=== PATIENT | male | born 1960 ===

== ENCOUNTER 2017-08-02 15:37 | Inpatient (IN) | payer BC, OTHER ==
--- NOTE | 2017-08-02 16:12 | ED PDOC ---
HPI:STROKE - Time Time: 15:20 - Historian Historian: Patient - Chief Complaint Chief Complaint: Slurred speech - Onset Onset: Just prior to presenting - Timing Timing: Improved - Context Context: Other ([employer]) - Location Location: Speech - Notes: Notes:: Nick Cates, 56 year old male is presenting in the emergency department for evaluation after one minute episode of slurred speech, occurring just prior to arrival. Episode was witnessed by and the plant maintenance mechanic. He states he was attempting to tell the plant maintenance mechanic he wanted an oil change but could not find the words. Patient states he felt fine prior to the episode and has never experienced a similar symptom in the past. Now he reports he still has difficulty finding words. Denies blurry vision, focal weakness, or difficulty with gait. PMD: Non CPH Provider NIHSS Stroke Scale - Date/Time Evaluation Performed Date Performed: 08/02/17 Time Performed: 15:20 When Was NIHSS Performed: Baseline - How Severe is the Stroke Level of Consciousness: 0=Alert LOC to Questions: 0=Both comments correct LOC to commands: 0=Obeys both correctly Best Gaze: 0=Normal Visual: 0=No visual loss Facial: 0=Normal Motor Arm - Left: 0=No drift Motor Arm - Right: 0=No drift Motor Leg - Left: 0=No drift Motor Leg - Right: 0=No drift Limb Ataxia: 0=Absent Sensory: 0=Normal Best Language: 0=No aphasia Dysarthia: 0=Normal articulation Extinction & Inattention (Neglect): 0=Normal, no object Score: 0 rTPA Inclusion/Exclusion - Refusal of Treatment Patient Refused Treatment: No - Inclusion Criteria for Altepase Patient is 18 years or Older: Yes The Clinical Diagnosis of Ischemic Stroke That is Causing a Potentially Disabling Neurological Deficit: Yes Time of Onset is Well Established to be Less Than 270 Minute Before Treatment Would Begin: Yes Risk/Benefit Discussed With Patient/Family Member Present: Yes - Exclusion Criteria for Altepase Uncontrolled Hypertension at Time of Treatment (Systolic BP above 185 or Diastolic BP above 110 mmHg): No - Warning to TPA With Conditions Condition: Stroke Serevity Too Mild Past Medical History Reviewed: Historical Data, Nursing Documentation, Vital Signs Vital Signs: Last Vital Signs Temp 97.9 F 08/02/17 15:43 Pulse 114 H 08/02/17 15:43 Resp 20 08/02/17 15:43 BP 151/97 H 08/02/17 15:43 Pulse Ox 94 L 08/02/17 15:43 - Medical History PMH: CAD, Diabetes, HTN, Hypercholesterolemia, Hyperlipidemia - Surgical History Surgical History: CABG (with 3 vessels), Coronary Stent - Family History Family History: States: Unknown Family Hx - Social History Current smoker - smoking cessation education provided: Yes Alcohol: None - Home Medications Home Medications: Ambulatory Orders Medication Instructions Recorded Aspirin [Ecotrin] 81 mg PO DAILY 08/02/17 Cholecalciferol (Vitamin D3) 1 tab PO DAILY 08/02/17 [D3-5000 90 mg-5000 Iu] Clopidogrel [Plavix] 75 mg PO DAILY 08/02/17 Empagliflozin/Linagliptin 1 tab PO DAILY 08/02/17 [Glyxambi 25 mg-5 mg] Fenofibrate [Triglide] 160 mg PO DAILY 08/02/17 Folic Acid 400 mg PO DAILY 08/02/17 MetFORMIN [glucoPHAGE] 1,000 mg PO BID 08/02/17 Metoprolol Succinate [Toprol XL] 100 mg PO BID 08/02/17 Olmesartan/Hydrochlorothiazide 12.5 mg PO DAILY 08/02/17 [Benicar Hct 12.5 mg-20 mg] Copeland-3 Fatty Acids/Fish Oil [Fish 1,000 mg PO DAILY 08/02/17 Oil 1,000 mg Capsule] - Allergies Allergies/Adverse Reactions: Allergies Allergy/AdvReac Type Severity Reaction Status Date / Time No Known Allergies Allergy Verified 08/02/17 15:53 Review of Systems ROS Statement: Except As Marked, All Systems Reviewed And Found Negative (As per HPI, otherwise negative) Eyes: Negative for: Vision Change (not blurry ) Neurological: Positive for: Change in Speech (slurred speech), Other (no difficulty with gait). Negative for: Weakness (no focal weakness), Numbness, Confusion Physical Exam - Reviewed Nursing Documentation Reviewed: Yes Vital Signs Reviewed: Yes - Physical Exam Appears: Positive for: Non-toxic, No Acute Distress Head Exam: Positive for: ATRAUMATIC, NORMOCEPHALIC Skin: Positive for: Warm, Dry Eye Exam: Positive for: EOMI, PERRL ENT: Positive for: Other (tacky mucus membranes). Negative for: Pharyngeal Erythema, Tonsillar Exudate Neck: Positive for: Painless ROM, Supple Cardiovascular/Chest: Positive for: Regular Rate, Rhythm, Chest Non Tender. Negative for: Murmur Respiratory: Positive for: Normal Breath Sounds. Negative for: Wheezing Gastrointestinal/Abdominal: Positive for: Soft. Negative for: Tenderness Back: Positive for: Normal Inspection. Negative for: Decreased ROM Extremity: Positive for: Normal ROM. Negative for: Deformity Lymphatic: Negative for: Adenopathy Neurologic/Psych: Positive for: Alert, Oriented (x3), Other (slurred speech). Negative for: Facial Droop - Laboratory Results Result Diagrams: 08/04/17 04:40 08/04/17 04:40 - ECG O2 Sat by Pulse Oximetry: 94 (RA) Pulse Ox Interpretation: Normal - Critical Care Total Time (In Min): 30 Documented Critical Care: Time excludes all time spent performint seperately billable procedures Medical Decision Making Medical Decision Making: Time: 15:54 Initial Impression: Speech Disturbance Transient Differential Diagnosis includes but is not limited to: TIA, CVA, Metabolic encephalopathy, Dehydration, Electrolyte Abnormalities, Arrhythmia, Acute Coronary Syndrome Initial Plan: --BBK Type and Screen --CT head --EKG --Alcohol Serum --BNP --CMP --Hemoglobin A1C --Lipid Panel --Magnesium --Phosphorous --Troponin --CBC --Partial Thromboplastin --Prothrombin Time --Chest XRAY --NS IV 100 mls/hr --Reevaluation ___ Accession No. : [id number] Patient Name / ID : ELLE VELAZQUEZ / [id number] Exam Date : 08/02/2017 15:58:24 ( Approved ) Study Comment : Sex / Age : M / 56Y Creator : Ridge Harry MD Dictator : Ridge Harry MD Adjunct Political Science Instructor : Director Of Clinical Education : Ridge Harry MD Approver2 : Report Date : 08/02/2017 16:11:45 My Comment : PROCEDURE: CT HEAD WITHOUT CONTRAST. HISTORY: code stroke COMPARISON: None available. TECHNIQUE: Axial computed tomography images were obtained through the head/brain without intravenous contrast. Radiation dose: Total exam DLP = 868 mGy-cm. This CT exam was performed using one or more of the following dose reduction techniques: Automated exposure control, adjustment of the mA and/or kV according to patient size, and/or use of iterative reconstruction technique. FINDINGS: HEMORRHAGE: No intracranial hemorrhage. BRAIN: No mass effect or edema. Questionable age-indeterminate hypodensity in the left marquita. No atrophy. Mild periventricular white matter chronic microvascular ischemic changes. VENTRICLES: Unremarkable. No hydrocephalus. CALVARIUM: Unremarkable. PARANASAL SINUSES: Unremarkable as visualized. No significant inflammatory changes. MASTOID AIR CELLS: Unremarkable as visualized. No inflammatory changes. OTHER FINDINGS: None. IMPRESSION: Questionable age-indeterminate hypodensity in the left marquita. Findings conveyed to Dr. Jerez by Dr. Mon at 4:10 p.m. on 08/02/2017. Time: 16:[address] Amaral, neurologist eviction specialist, who recommends full stroke work-up, including MRI, ECHO Cardiogram, Carotid Doppler, and Hospitalization 5p Pt started to have symptoms again. DW Dr Amaral. Agree with CT Angio and discussion about thrombolytics. DW pt and risks/benefits of thrombolytics. Pt's symptoms resolved again after about 3 minutes. Accession No. : [id number] Patient Name / ID : ELLE VELAZQUEZ / [id number] Exam Date : 08/02/2017 16:13:26 ( Approved ) Study Comment : Sex / Age : M / 56Y Creator : Ridge Harry MD Dictator : Ridge Harry MD Adjunct Political Science Instructor : Director Of Clinical Education : Ridge Harry MD Approver2 : Report Date : 08/02/2017 17:17:30 My Comment : HISTORY: code stroke COMPARISON: No prior. FINDINGS: LUNGS: No active pulmonary disease. PLEURA: No significant pleural effusion identified, no pneumothorax apparent. CARDIOVASCULAR: Prior sternotomy with sternal wires and surgical clips in place. Cardiomediastinal silhouette enlarged. OSSEOUS STRUCTURES: Degenerative changes. VISUALIZED UPPER ABDOMEN: Normal. OTHER FINDINGS: None. IMPRESSION: No active disease. Patient Name: NICK CATES (Age): 1960 56 Gender: M Date of Exam: 08/02/2017 Referring Physician: Kristy Jerez # of Images: 0 Ordered As: CTA HEAD NECK BUNDLE Page 1 of 2 EXAM: CT Angiography Neck With Intravenous Contrast EXAM DATE/TIME: 08/02/2017 5:08 PM CLINICAL HISTORY: 56 years old, male; Signs and symptoms; Other: Slurred speach; Additional info: Slurred speech TECHNIQUE: Axial computed tomographic angiography images of the neck with intravenous contrast using CT angiography protocol. All CT scans at this facility use one or more dose reduction techniques, viz.: automated exposure control; ma/kV adjustment per patient size (including targeted exams where dose is matched to indication; i.e. head); or iterative reconstruction technique. Reformatted 2-D isotropic reconstructions were created. CONTRAST: 100 mL of visipaque administered intravenously. COMPARISON: No relevant prior studies available. FINDINGS: VASCULATURE: Right common carotid artery: Unremarkable. No significant stenosis. No dissection or occlusion. Right internal carotid artery: There is mildly flow-limiting plaque at the right carotid bulb. The artery is narrowed by 20-30%. The remaining right internal carotid artery is tortuous but otherwise patent. Right external carotid artery: Unremarkable. No occlusion. Right vertebral artery: Unremarkable. No significant stenosis. No dissection or occlusion. Left common carotid artery: Unremarkable. No significant stenosis. No dissection or occlusion. Left internal carotid artery: There is mildly flow-limiting plaque at the left carotid bulb. The artery is narrowed by 20-30%. The remaining left internal carotid artery is tortuous but otherwise patent. Left external carotid artery: Unremarkable. No occlusion. Left vertebral artery: Unremarkable. No significant stenosis. No dissection or occlusion. NECK: Bones/joints: No acute fracture. No dislocation. Soft tissues: Unremarkable as visualized. No mass. CAROTID STENOSIS REFERENCE USING NASCET CRITERIA: % ICA stenosis = (1 - narrowest ICA diameter/diameter of distal cervical ICA) x 100. Mild - <50% stenosis. Moderate - 50-69% stenosis. Severe - 70-94% stenosis. Near occlusion - 95-99% stenosis. Occluded - 100% stenosis. IMPRESSION: 1. Mildly flow-limiting plaque at both carotid bulbs with each artery narrowing by 20-30%. 2. No other flow limiting stenosis or occlusion. Thank you for allowing us to participate in the care of your patient. Dictated and Authenticated by: Ravindra Hutchison MD 08/02/2017 6:51 PM Eastern Time ([place] & [place]) DW Dr Amaral findings. Advises one bolus dose of heparin and discussion with [facility] if patient would have possible intervention. FARAZ Valenzuela of [facility], who will review CT and advise to Dr Amaral. Scribe Attestation: Documented by Sahil Pittman, acting as a scribe for Kristy Jerez MD Provider Scribe Attestation: All medical record entries made by the Scribe were at my direction and personally dictated by me. I have reviewed the chart and agree that the record accurately reflects my personal performance of the history, physical exam, medical decision making, and the department course for this patient. I have also personally directed, reviewed, and agree with the discharge instructions and disposition. Disposition - Clinical Impression Clinical Impression: Dysarthria, TIA (transient ischemic attack) - Patient ED Disposition Is Patient to be Admitted: Yes Discussed With : Paige Amaral - Disposition Disposition Time: 16:45 Condition: CRITICAL - Pt Status Changed To: Hospital Disposition Of: Inpatient - Admit Certification Admit to Inpatient:: After my assessment, the patient will require hospitalization for at least two midnights. This is because of the severity of symptoms shown, intensity of services needed, and/or the medical risk in this patient being treated as an outpatient. - POA Core Measure Indicators: Code Stroke
[2017-08-02 16:23] LABS: BASO # 0.1 K/uL (0.0-0.2); BASO % 0.4 % (0.0-2.0); EOS # 0.2 K/uL (0.0-0.7); EOS % 1.6 % (0.0-4.0); HEMOGLOBIN 15.9 g/dL (12.0-18.0); LYMPH # 2.5 K/uL (1.0-4.3); LYMPH % 21.4 % (20.0-40.0); MEAN CELL VOLUME 90.2 fl (80.0-94.0); MEAN CORPUSCULAR HEMOGLOBIN 30.5 pg (27.0-31.0); MEAN CORPUSCULAR HGB CONC 33.8 g/dL (33.0-37.0); MEAN PLATELET VOLUME 8.7 fl (7.2-11.7); MONO # 1.2 K/uL (0.0-0.8); MONO % 10.3 % (0.0-10.0); NEUT # 7.6 K/uL (1.8-7.0); NEUT % 66.3 % (50.0-75.0); NRBC % 0.1 % (0.0-0.0); RBC 5.21 Mil/uL (4.40-5.90); WHITE BLOOD COUNT 11.5 K/uL (4.8-10.8)
[2017-08-02] MEDS ORDERED: Sodium Chloride 0.9% 1,000 ML IV STA ×2 (16:28→19:12)
[2017-08-02 16:44] LABS: INR 0.9 (0.9-1.2); PROTHROMBIN TIME 10.2 Seconds (9.8-13.1)
[2017-08-02 16:45] LABS: PARTIAL THROMBOPLASTIN TIME 29.7 Seconds (25.6-37.1)
[2017-08-02 16:52] LABS: ALB/GLOB RATIO 1.4 (1.0-2.1); ALBUMIN 4.3 g/dL (3.5-5.0); ALT/SGPT 40 U/L (21-72); AST/SGOT 32 U/L (17-59); BLOOD UREA NITROGEN 20 mg/dl (9-20); CALCIUM 9.6 mg/dL (8.4-10.2); GFR AFRICAN-AMERICAN > 60; GFR NON-AFRICAN AMERICAN > 60; HDL CHOLESTEROL 48 MG/DL (30-70); MAGNESIUM 1.5 MG/DL (1.6-2.3)
[2017-08-02 16:56] LABS: LDL CHOLESTEROL 44 mg/dL (0-129)
[2017-08-02 17:00] LABS: B-TYPE NATRIURETIC PEPTIDE 25.3 pg/ml (0-900)
--- NOTE | 2017-08-02 17:19 | RAD ---
HISTORY: code stroke COMPARISON: No prior. FINDINGS: LUNGS: No active pulmonary disease. PLEURA: No significant pleural effusion identified, no pneumothorax apparent. CARDIOVASCULAR: Prior sternotomy with sternal wires and surgical clips in place. Cardiomediastinal silhouette enlarged. OSSEOUS STRUCTURES: Degenerative changes. VISUALIZED UPPER ABDOMEN: Normal. OTHER FINDINGS: None. IMPRESSION: No active disease.
[2017-08-02] MEDS ORDERED: Sodium Chloride 0.9% 50 ML IV ONE (17:24)
[2017-08-02] MEDS ORDERED: Iodixanol 320 MG/ML 100 ML BOTTLE IV ONE (17:24)
--- NOTE | 2017-08-02 18:28 | CP.PCM.CON ---
History of Present Illness - History of Present Illness History of Present Illness: 56 y/o male with Pmx of CAD s/p CABG, h/o DM (uncontrolled), h/o smoking 2-3 ppd [place] presents to [facility] with incident of garbled speach during oil change. Patient's speachwas at baseline during my examination. Patient had no symptoms. Patient denied any dizziness, denied any chest pain, deneid any palpitations. ER requested ICU bed for frequent neuro checks. 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) Review of Systems - Constitutional Constitutional: Headache, Weight Gain - Cardiovascular Cardiovascular: absent: Chest Pain, Palpitations - Respiratory Respiratory: absent: Cough, Dyspnea, Wheezing - Gastrointestinal Gastrointestinal: absent: Abdominal Pain, Coffee Ground Emesis, Constipation, Fecal Incontinence - Neurological Neurological: Other (transient slurred speach) Past Patient History - Tetanus Immunizations Tetanus Immunization: Unknown - Past Medical History & Family History Past Medical History?: Yes - Past Social History Smoking Status: Heavy Smoker > 10 Cigarettes Daily Alcohol: None - CARDIAC Hx Cardiac Disorders: Yes - ENDOCRINE/METABOLIC Hx Diabetes Mellitus Type 2: Yes - PSYCHIATRIC Hx Substance Use: No - SURGICAL HISTORY Hx Coronary Artery Bypass Graft: Yes (with 3 vessels) Hx Coronary Stent: Yes Meds Allergies/Adverse Reactions: Allergies Allergy/AdvReac Type Severity Reaction Status Date / Time No Known Allergies Allergy Verified 08/02/17 15:53 - Medications Medications: Current Medications Sodium Chloride (Sodium Chloride 0.9%) 1,000 mls @ 100 mls/hr IV .Q10H STA Stop: 08/03/17 02:27 Last Admin: 08/02/17 17:05 Dose: 100 mls/hr Physical Exam - Head Exam Head Exam: ATRAUMATIC, NORMAL INSPECTION, NORMOCEPHALIC - Eye Exam Eye Exam: EOMI, PERRL Pupil Exam: PERRL - ENT Exam ENT Exam: Mucous Membranes Moist - Cardiovascular Exam Cardiovascular Exam: REGULAR RHYTHM, +S1, +S2, +S4 - Extremities Exam Extremities exam: Positive for: normal inspection - Back Exam Back exam: NORMAL INSPECTION - Neurological Exam Neurological exam: CN II-XII Intact, Oriented x3 - Skin Skin Exam: Normal Color Results - Vital Signs Recent Vital Signs: Last Vital Signs Temp 97.9 F 08/02/17 15:43 Pulse 111 H 08/02/17 18:13 Resp 16 08/02/17 18:13 BP 136/81 08/02/17 18:13 Pulse Ox 94 L 08/02/17 18:09 - Labs Result Diagrams: 08/02/17 16:03 08/02/17 16:03 Labs: Laboratory Results - last 24 hr 08/02/17 08/02/17 08/02/17 15:48 15:50 16:03 WBC 11.5 H RBC 5.21 Hgb 15.9 Hct 47.0 MCV 90.2 MCH 30.5 MCHC 33.8 RDW 13.0 Plt Count 209 MPV 8.7 Neut % (Auto) 66.3 Lymph % (Auto) 21.4 [place] % (Auto) 10.3 H Eos % (Auto) 1.6 Baso % (Auto) 0.4 Neut # 7.6 H Lymph # 2.5 Creek # 1.2 H Eos # 0.2 Baso # 0.1 PT INR APTT D-Dimer, Quantitative Sodium Potassium Chloride Carbon Dioxide Anion Gap BUN Creatinine Est GFR ( Amer) Est GFR (Non-Af Amer) POC Glucose (mg/dL) 159 H Random Glucose Calcium Phosphorus Magnesium Total Bilirubin AST ALT Alkaline Phosphatase Troponin I NT-Pro-B Natriuret Pep Total Protein Albumin Globulin Albumin/Globulin Ratio Triglycerides Cholesterol LDL Cholesterol Direct HDL Cholesterol Alcohol, Quantitative Blood Type A POSITIVE Antibody Screen Negative BBK History Checked No verified bt 08/02/17 08/02/17 08/02/17 16:03 16:03 17:51 WBC RBC Hgb Hct MCV MCH MCHC RDW Plt Count MPV Neut % (Auto) Lymph % (Auto) Creek % (Auto) Eos % (Auto) Baso % (Auto) Neut # Lymph # [place] # Eos # Baso # PT 10.2 INR 0.9 APTT 29.7 D-Dimer, Quantitative 44 Sodium 145 Potassium 4.0 Chloride 103 Carbon Dioxide 31 H Anion Gap 15 BUN 20 Creatinine 0.9 Est GFR ( Amer) > 60 Est GFR (Non-Af Amer) > 60 POC Glucose (mg/dL) Random Glucose 178 H Calcium 9.6 Phosphorus 3.3 Magnesium 1.5 L Total Bilirubin 0.8 AST 32 ALT 40 Alkaline Phosphatase 48 Troponin I < 0.0120 NT-Pro-B Natriuret Pep 25.3 Total Protein 7.4 Albumin 4.3 Globulin 3.1 Albumin/Globulin Ratio 1.4 Triglycerides 285 H D Cholesterol 122 LDL Cholesterol Direct 44 HDL Cholesterol 48 Alcohol, Quantitative < 10 Blood Type Antibody Screen BBK History Checked Assessment & Plan - Assessment and Plan (Free Text) Plan: TIA: start asa + plavix + statin, obtain neurology eval/input, serial neuro exam -echo/carotid dopplers, crp and d-dimer, MRA -CAD: continue home medications -DM: check HBA1C, NPO for first 24 horus, BGM q6hrs, ISS lispro, restart home medications after 24 hours -DVT ppx heparin/scds -PUD ppx pepcid -Patient remains hemodynamically stable -repeat imaging if neuro status worsens continue to monitor -Multiple diagnostic tests pending, including neurology eval for TIA (clarify whether IV heparin should be started?) -above management d/w Dr. Resendiz to follow up pending diagnostic tests. - Date & Time Date: 08/02/17 Time: 18:34
[2017-08-02] MEDS ORDERED: Insulin Lispro (humaLOG) 100 Units/ml Inj SC SCH ×2 (18:45→19:15)
[2017-08-02] MEDS ORDERED: Metoprolol 1 mg/ml Inj IVP PRN (18:46)
[2017-08-02] MEDS ORDERED: Nicardipine 20 MG/200 ML 20 MG/200 ML BAG IV ONE (18:48)
[2017-08-02] MEDS: Insulin Lispro (humaLOG) 100 Units/ml Inj SC SCH (22:30)
[2017-08-03] MEDS: Insulin Lispro (humaLOG) 100 Units/ml Inj SC SCH ×2 (04:30→22:06)
[2017-08-03 05:19] LABS: HEMOGLOBIN 14.4 g/dL (12.0-18.0); MEAN CELL VOLUME 91.6 fl (80.0-94.0); MEAN CORPUSCULAR HEMOGLOBIN 30.4 pg (27.0-31.0); MEAN CORPUSCULAR HGB CONC 33.2 g/dL (33.0-37.0); RBC 4.75 Mil/uL (4.40-5.90); RED CELL DISTRIBUTION WIDTH 13.1 % (11.5-14.5); WHITE BLOOD COUNT 10.2 K/uL (4.8-10.8)
[2017-08-03 05:30] LABS: BLOOD UREA NITROGEN 16 mg/dl (9-20); CALCIUM 9.3 mg/dL (8.4-10.2); GFR AFRICAN-AMERICAN > 60; GFR NON-AFRICAN AMERICAN > 60
[2017-08-03] MEDS ORDERED: Potassium Chloride 20 mEq ER Tab PO ONE (06:05)
[2017-08-03 06:25] VITALS: BMI 36.0
--- NOTE | 2017-08-03 16:41 | CP.PCM.HP ---
History of Present Illness - History of Present Illness History of Present Illness: This is a 56 y/o male admitted for sudden onset of slurred speech while trying to change oil for his car. He denies having the same sx in the past or having any associated sx of facial palsy or extremity weakness. Sx disappear as soon as he got to the ER after 30 minutes. He had another episode of slurred speech in the ER but resolved quickly. He has a hx of CABG 3 vess in 2011. Has hyperlipidemia and DM 2 uncontrolled. Present on Admission - Present on Admission Any Indicators Present on Admission: No History of DVT/PE: No History of Uncontrolled Diabetes: Yes Urinary Catheter: No Decubitus Ulcer Present: No Past Patient History - Tetanus Immunizations Tetanus Immunization: Unknown - Past Medical History & Family History Past Medical History?: Yes - Past Social History Alcohol: None - CARDIAC Hx Hypercholesterolemia: Yes Hx Hypertension: Yes - ENDOCRINE/METABOLIC Hx Diabetes Mellitus Type 2: Yes - MUSCULOSKELETAL/RHEUMATOLOGICAL Hx Falls: No - PSYCHIATRIC Hx Substance Use: No - SURGICAL HISTORY Hx Coronary Artery Bypass Graft: Yes (with 3 vessels) Hx Coronary Stent: Yes Meds Allergies/Adverse Reactions: Allergies Allergy/AdvReac Type Severity Reaction Status Date / Time No Known Allergies Allergy Verified 08/02/17 15:53 Physical Exam - Head Exam Head Exam: NORMAL INSPECTION - Eye Exam Eye Exam: Normal appearance - ENT Exam ENT Exam: Mucous Membranes Moist - Respiratory Exam Respiratory Exam: Clear to Auscultation Bilateral, NORMAL BREATHING PATTERN - Cardiovascular Exam Cardiovascular Exam: REGULAR RHYTHM - GI/Abdominal Exam GI & Abdominal Exam: Normal Bowel Sounds - Neurological Exam Neurological exam: CN II-XII Intact - Psychiatric Exam Psychiatric exam: Normal Mood - Skin Skin Exam: Normal Color Results - Vital Signs Recent Vital Signs: Last Vital Signs Temp 97.6 F 08/03/17 16:00 Pulse 84 08/03/17 16:00 Resp 17 08/03/17 14:00 BP 131/73 08/03/17 16:00 Pulse Ox 96 08/03/17 16:00 - Labs Result Diagrams: 08/03/17 04:45 08/03/17 04:45 Labs: Laboratory Results - last 24 hr 08/02/17 08/02/17 08/02/17 15:50 16:03 16:03 WBC 11.5 H RBC 5.21 Hgb 15.9 Hct 47.0 MCV 90.2 MCH 30.5 MCHC 33.8 RDW 13.0 Plt Count 209 MPV 8.7 Neut % (Auto) 66.3 Lymph % (Auto) 21.4 [place] % (Auto) 10.3 H Eos % (Auto) 1.6 Baso % (Auto) 0.4 Neut # 7.6 H Lymph # 2.5 [place] # 1.2 H Eos # 0.2 Baso # 0.1 PT INR APTT D-Dimer, Quantitative Sodium 145 Potassium 4.0 Chloride 103 Carbon Dioxide 31 H Anion Gap 15 BUN 20 Creatinine 0.9 Est GFR ( Amer) > 60 Est GFR (Non-Af Amer) > 60 POC Glucose (mg/dL) Random Glucose 178 H Calcium 9.6 Phosphorus 3.3 Magnesium 1.5 L Total Bilirubin 0.8 AST 32 ALT 40 Alkaline Phosphatase 48 Troponin I < 0.0120 C-React Prot High Sens NT-Pro-B Natriuret Pep 25.3 Total Protein 7.4 Albumin 4.3 Globulin 3.1 Albumin/Globulin Ratio 1.4 Triglycerides 285 H D Cholesterol 122 LDL Cholesterol Direct 44 HDL Cholesterol 48 TSH 3rd Generation Alcohol, Quantitative < 10 Blood Type A POSITIVE Antibody Screen Negative BBK History Checked No verified bt 08/02/17 08/02/17 08/02/17 16:03 17:04 17:51 WBC RBC Hgb Hct MCV MCH MCHC RDW Plt Count MPV Neut % (Auto) Lymph % (Auto) [place] % (Auto) Eos % (Auto) Baso % (Auto) Neut # Lymph # [place] # Eos # Baso # PT 10.2 INR 0.9 APTT 29.7 D-Dimer, Quantitative Sodium Potassium Chloride Carbon Dioxide Anion Gap BUN Creatinine Est GFR ( Amer) Est GFR (Non-Af Amer) POC Glucose (mg/dL) 189 H Random Glucose Calcium Phosphorus Magnesium Total Bilirubin AST ALT Alkaline Phosphatase Troponin I C-React Prot High Sens 1.95 NT-Pro-B Natriuret Pep Total Protein Albumin Globulin Albumin/Globulin Ratio Triglycerides Cholesterol LDL Cholesterol Direct HDL Cholesterol TSH 3rd Generation Alcohol, Quantitative Blood Type Antibody Screen BBK History Checked 08/02/17 08/02/17 08/03/17 17:51 23:11 04:30 WBC RBC Hgb Hct MCV MCH MCHC RDW Plt Count MPV Neut % (Auto) Lymph % (Auto) [place] % (Auto) Eos % (Auto) Baso % (Auto) Neut # Lymph # [place] # Eos # Baso # PT INR APTT D-Dimer, Quantitative 44 Sodium Potassium Chloride Carbon Dioxide Anion Gap BUN Creatinine Est GFR ( Amer) Est GFR (Non-Af Amer) POC Glucose (mg/dL) 165 H 143 H Random Glucose Calcium Phosphorus Magnesium Total Bilirubin AST ALT Alkaline Phosphatase Troponin I C-React Prot High Sens NT-Pro-B Natriuret Pep Total Protein Albumin Globulin Albumin/Globulin Ratio Triglycerides Cholesterol LDL Cholesterol Direct HDL Cholesterol TSH 3rd Generation Alcohol, Quantitative Blood Type Antibody Screen BBK History Checked 08/03/17 08/03/17 08/03/17 04:45 04:45 04:45 WBC 10.2 RBC 4.75 Hgb 14.4 Hct 43.5 MCV 91.6 MCH 30.4 MCHC 33.2 RDW 13.1 Plt Count 164 MPV Neut % (Auto) Lymph % (Auto) [place] % (Auto) Eos % (Auto) Baso % (Auto) Neut # Lymph # [place] # Eos # Baso # PT INR APTT 28.8 D-Dimer, Quantitative Sodium 142 Potassium 3.3 L Chloride 105 Carbon Dioxide 27 Anion Gap 13 BUN 16 Creatinine 0.7 L Est GFR ( Amer) > 60 Est GFR (Non-Af Amer) > 60 POC Glucose (mg/dL) Random Glucose 157 H Calcium 9.3 Phosphorus Magnesium Total Bilirubin AST ALT Alkaline Phosphatase Troponin I C-React Prot High Sens NT-Pro-B Natriuret Pep Total Protein Albumin Globulin Albumin/Globulin Ratio Triglycerides Cholesterol LDL Cholesterol Direct HDL Cholesterol TSH 3rd Generation 0.87 Alcohol, Quantitative Blood Type Antibody Screen BBK History Checked 08/03/17 11:00 WBC RBC Hgb Hct MCV MCH MCHC RDW Plt Count MPV Neut % (Auto) Lymph % (Auto) [place] % (Auto) Eos % (Auto) Baso % (Auto) Neut # Lymph # [place] # Eos # Baso # PT INR APTT D-Dimer, Quantitative Sodium Potassium Chloride Carbon Dioxide Anion Gap BUN Creatinine Est GFR ( Amer) Est GFR (Non-Af Amer) POC Glucose (mg/dL) 189 H Random Glucose Calcium Phosphorus Magnesium Total Bilirubin AST ALT Alkaline Phosphatase Troponin I C-React Prot High Sens NT-Pro-B Natriuret Pep Total Protein Albumin Globulin Albumin/Globulin Ratio Triglycerides Cholesterol LDL Cholesterol Direct HDL Cholesterol TSH 3rd Generation Alcohol, Quantitative Blood Type Antibody Screen BBK History Checked Assessment & Plan (1) TIA (transient ischemic attack) Status: Acute (2) Hyperlipidemia Status: Acute (3) Coronary artery disease Status: Acute (4) Diabetes mellitus type 2 in obese Status: Acute (5) Hypertension Status: Acute - Assessment and Plan (Free Text) Plan: Cont meds Cont tx neurocheck ASA 81 neuro eval repeat MRI
--- NOTE | 2017-08-03 16:48 | US ---
PROCEDURE: Duplex ultrasound of the carotid and vertebral arteries. HISTORY: tia COMPARISON: None available. TECHNIQUE: Grayscale and duplex Doppler evaluation of the cervical carotid and vertebral arteries were performed. The common carotid, carotid bifurcations and cervical ICA and proximal ECA were evaluated. The vertebral arteries were evaluated for gross patency and direction. FINDINGS: RIGHT CAROTID ARTERIES: Common Carotid Artery: Normal. Maximal flow velocity of 82.3 cm/s. Carotid Bifurcation: Calcific plaque. Internal Carotid Artery:Normal. Maximal flow velocity of 70.2 cm/s. External Carotid Artery (proximal branches): Normal. Maximal flow velocity of 93.3 cm/s. ICA/CCA Ratio: 0.9 LEFT CAROTID ARTERIES: Common Carotid Artery: Normal. Maximal flow velocity of 130.0 cm/s. Carotid Bifurcation: Calcific plaque. Internal Carotid Artery:Normal. Maximal flow velocity of 70.7 cm/s. External Carotid Artery (proximal branches): Normal. Maximal flow velocity of 99.4 cm/s. ICA/CCA Ratio: 0.5 VERTEBRAL ARTERIES: Right Vertebral Artery: Patent. Antegrade flow. Left Vertebral Artery: Patent. Antegrade flow. OTHER FINDINGS: None. IMPRESSION: No hemodynamically significant stenosis of the internal carotid arteries, bilaterally.
--- NOTE | 2017-08-03 21:59 | CP.PCM.CON ---
History of Present Illness - History of Present Illness History of Present Illness: 56 yr old male who came in as a stroke alert at about 6 pm, with a discrete spell of dysarthria and aphasia. I was called and the patients deficit resolved completely., NIH stroke scale of 0. CTA was ordered and patient was well until one hour later when he once again had dysarthria with resolving deficits in several minutes. CTA was completed and showed only minimal carotid disease, and no carotid plaque. At this point, we considered giving heparin, but after consulting neurointerventionalist and cta reading assessed to be non plaque with no thrombus, it was decided to continue with aspirin and stroke workup. Patient is now admitted to ICU and is stable. THe plan is to only continue aspirin and plavix, monitor for afib , obtain MRI BRain, Echo , Carotid Dopplers. He was not a TPA canddiate due to resolving deficits. TOday, the patient is well with o focal deficits. He states that he does not follow diet and exercise but does take his anticoagulants. PMH/PSH: as above, FH/SH: , No tobacco, no etoh. All: nkda Normal neurological examination. Past Patient History - Tetanus Immunizations Tetanus Immunization: Unknown - Past Medical History & Family History Past Medical History?: Yes - Past Social History Smoking Status: Former Smoker - CARDIAC Hx Hypercholesterolemia: Yes Hx Hypertension: Yes - ENDOCRINE/METABOLIC Hx Diabetes Mellitus Type 2: Yes - MUSCULOSKELETAL/RHEUMATOLOGICAL Hx Falls: No - PSYCHIATRIC Hx Substance Use: No - SURGICAL HISTORY Hx Coronary Artery Bypass Graft: Yes (with 3 vessels) Hx Coronary Stent: Yes Meds Allergies/Adverse Reactions: Allergies Allergy/AdvReac Type Severity Reaction Status Date / Time No Known Allergies Allergy Verified 08/02/17 15:53 - Medications Medications: Current Medications Aspirin (Aspirin Chewable) 81 mg PO DAILY [facility] Atorvastatin Calcium (Lipitor) 40 mg PO DAILY [facility] Clopidogrel Bisulfate (Plavix) 75 mg PO DAILY [facility] Famotidine (Pepcid) 20 mg PO BID [facility] Heparin Sodium (Porcine) (Heparin) 5,000 units SC Q8 [facility] PRN Reason: Protocol Sodium Chloride (Sodium Chloride 0.9%) 1,000 mls @ 42 mls/hr IV .[id number] STA Stop: 08/03/17 16:16 Insulin Human Lispro (Humalog) 0 units SC Q6H [facility] PRN Reason: Protocol Metoprolol Tartrate (Lopressor) 5 mg IVP Q4H PRN PRN Reason: Systolic Blood Pressure Last Admin: 08/02/17 19:02 Dose: 5 mg Metoprolol Tartrate (Lopressor) 50 mg PO Q12 [facility] Results - Vital Signs Recent Vital Signs: Last Vital Signs Temp 97.9 F 08/02/17 15:43 Pulse 112 H 08/02/17 20:46 Resp 18 08/02/17 20:46 BP 161/89 H 08/02/17 19:12 Pulse Ox 94 L 08/02/17 20:34 - Labs Result Diagrams: 08/03/17 04:45 08/03/17 04:45 Labs: Laboratory Results - last 24 hr 08/02/17 08/02/17 08/02/17 15:48 15:50 16:03 WBC 11.5 H RBC 5.21 Hgb 15.9 Hct 47.0 MCV 90.2 MCH 30.5 MCHC 33.8 RDW 13.0 Plt Count 209 MPV 8.7 Neut % (Auto) 66.3 Lymph % (Auto) 21.4 [place] % (Auto) 10.3 H Eos % (Auto) 1.6 Baso % (Auto) 0.4 Neut # 7.6 H Lymph # 2.5 [place] # 1.2 H Eos # 0.2 Baso # 0.1 PT INR APTT D-Dimer, Quantitative Sodium Potassium Chloride Carbon Dioxide Anion Gap BUN Creatinine Est GFR ( Amer) Est GFR (Non-Af Amer) POC Glucose (mg/dL) 159 H Random Glucose Calcium Phosphorus Magnesium Total Bilirubin AST ALT Alkaline Phosphatase Troponin I NT-Pro-B Natriuret Pep Total Protein Albumin Globulin Albumin/Globulin Ratio Triglycerides Cholesterol LDL Cholesterol Direct HDL Cholesterol Alcohol, Quantitative Blood Type A POSITIVE Antibody Screen Negative BBK History Checked No verified bt 08/02/17 08/02/17 08/02/17 16:03 16:03 17:04 WBC RBC Hgb Hct MCV MCH MCHC RDW Plt Count MPV Neut % (Auto) Lymph % (Auto) [place] % (Auto) Eos % (Auto) Baso % (Auto) Neut # Lymph # [place] # Eos # Baso # PT 10.2 INR 0.9 APTT 29.7 D-Dimer, Quantitative Sodium 145 Potassium 4.0 Chloride 103 Carbon Dioxide 31 H Anion Gap 15 BUN 20 Creatinine 0.9 Est GFR ( Amer) > 60 Est GFR (Non-Af Amer) > 60 POC Glucose (mg/dL) 189 H Random Glucose 178 H Calcium 9.6 Phosphorus 3.3 Magnesium 1.5 L Total Bilirubin 0.8 AST 32 ALT 40 Alkaline Phosphatase 48 Troponin I < 0.0120 NT-Pro-B Natriuret Pep 25.3 Total Protein 7.4 Albumin 4.3 Globulin 3.1 Albumin/Globulin Ratio 1.4 Triglycerides 285 H D Cholesterol 122 LDL Cholesterol Direct 44 HDL Cholesterol 48 Alcohol, Quantitative < 10 Blood Type Antibody Screen BBK History Checked 08/02/17 17:51 WBC RBC Hgb Hct MCV MCH MCHC RDW Plt Count MPV Neut % (Auto) Lymph % (Auto) [place] % (Auto) Eos % (Auto) Baso % (Auto) Neut # Lymph # [place] # Eos # Baso # PT INR APTT D-Dimer, Quantitative 44 Sodium Potassium Chloride Carbon Dioxide Anion Gap BUN Creatinine Est GFR ( Amer) Est GFR (Non-Af Amer) POC Glucose (mg/dL) Random Glucose Calcium Phosphorus Magnesium Total Bilirubin AST ALT Alkaline Phosphatase Troponin I NT-Pro-B Natriuret Pep Total Protein Albumin Globulin Albumin/Globulin Ratio Triglycerides Cholesterol LDL Cholesterol Direct HDL Cholesterol Alcohol, Quantitative Blood Type Antibody Screen BBK History Checked Assessment & Plan - Assessment and Plan (Free Text) Assessment: 56 yr old male with likely TIA, due to extensive atherosclerosis, and plaque. HE is not a TPA candidate, but will need a loop recorder to evaluate for afib, and continue anticoagulant and diet and exercise. Plan: 1. MRI BRain without contrast, 2. Followup with cardiology Thank you for this interesting consult. We will follow.
[2017-08-04 05:28] LABS: HEMOGLOBIN 14.4 g/dL (12.0-18.0); MEAN CORPUSCULAR HEMOGLOBIN 30.6 pg (27.0-31.0); MEAN CORPUSCULAR HGB CONC 33.7 g/dL (33.0-37.0); RBC 4.72 Mil/uL (4.40-5.90); RED CELL DISTRIBUTION WIDTH 13.1 % (11.5-14.5); WHITE BLOOD COUNT 9.2 K/uL (4.8-10.8)
[2017-08-04 05:54] LABS: BLOOD UREA NITROGEN 9 mg/dl (9-20); CALCIUM 9.3 mg/dL (8.4-10.2); GFR AFRICAN-AMERICAN > 60; GFR NON-AFRICAN AMERICAN > 60
[2017-08-04] MEDS: Insulin Lispro (humaLOG) 100 Units/ml Inj SC SCH (06:42)
[2017-08-04 08:12] VITALS: RESP 16
[2017-08-04 08:22] VITALS: PULSE 99
--- NOTE | 2017-08-04 08:49 | CP.PCM.PN ---
Subjective - Date & Time of Evaluation Date of Evaluation: 08/04/17 Time of Evaluation: 08:45 - Subjective Subjective: Mr. Cates was seen and examined at the bedside in ICU. He is alert, oriented in all spheres and demands to be discharge today after MRI of the brain. He denies any headache, dizziness, blurred vision, nausea, or vomiting. He is standing at the bedside with steady gait. He further states that he will stay only for the MRI after which he wants to go home. His request was seconded by the . I explained to him about the recommendation of loop recorder, but will be done as an outpatient. He is agreeable with the idea. There was no untoward events overnight. Objective - Vital Signs/Intake and Output Vital Signs (last 24 hours): Temp Pulse Resp BP Pulse Ox 98.3 F 99 H 16 146/91 H 97 08/04/17 08:00 08/04/17 08:20 08/04/17 08:00 08/04/17 08:20 08/04/17 08:00 Intake and Output: 08/04/17 08/04/17 06:59 18:59 Intake Total 0 Output Total 200 Balance -200 - Medications Medications: Current Medications Aspirin (Aspirin Chewable) 81 mg PO DAILY [facility] Last Admin: 08/04/17 08:21 Dose: 81 mg Atorvastatin Calcium (Lipitor) 40 mg PO DAILY [facility] Last Admin: 08/04/17 08:21 Dose: 40 mg Clopidogrel Bisulfate (Plavix) 75 mg PO DAILY [facility] Last Admin: 08/04/17 08:20 Dose: 75 mg Famotidine (Pepcid) 20 mg PO BID [facility] Last Admin: 08/04/17 08:19 Dose: 20 mg Heparin Sodium (Porcine) (Heparin) 5,000 units SC Q8 [facility] PRN Reason: Protocol Last Admin: 08/04/17 08:21 Dose: 5,000 units Insulin Human Lispro (Humalog) 0 units SC ACHS [facility] PRN Reason: Protocol Last Admin: 08/04/17 06:42 Dose: 1 unit Lisinopril (Zestril) 20 mg PO DAILY [facility] Last Admin: 08/04/17 08:20 Dose: 20 mg Metoprolol Tartrate (Lopressor) 5 mg IVP Q4H PRN PRN Reason: Systolic Blood Pressure Last Admin: 08/02/17 19:02 Dose: 5 mg Metoprolol Tartrate (Lopressor) 100 mg PO Q12 [facility] Last Admin: 08/04/17 08:20 Dose: 100 mg - Labs Labs: 08/04/17 04:40 08/04/17 04:40 PT 10.2 Seconds (9.8-13.1) 08/02/17 16:03 INR 0.9 (0.9-1.2) 08/02/17 16:03 APTT 28.8 Seconds (25.6-37.1) 08/03/17 04:45 - Constitutional Appears: No Acute Distress - Head Exam Head Exam: NORMAL INSPECTION - Neurological Exam Neurological Exam: Alert, Awake, CN II-XII Intact, Oriented x3 Neuro motor strength exam: Left Upper Extremity: 5, Right Upper Extremity: 5, Left Lower Extremity: 5, Right Lower Extremity: 5 Additional comments: Neurological unchanged from previous examination. Assessment and Plan (1) TIA (transient ischemic attack) Assessment & Plan: Case discussed with Dr. Amaral, continue all current medical regimen. Recommend MRI of the brain and if it is negative for any acute findings to be clear for discharge and follow up with a thin film technician ( Dr. Corea [phone] Villa [phone]) for possible loop recorder. Status: Acute
--- NOTE | 2017-08-04 10:08 | CT ---
PROCEDURE: CT Angiography of the Brain. HISTORY: slurred speech COMPARISON: None available. TECHNIQUE: CT angiography of the intracranial arteries was performed. Coronal and sagittal maximum intensity projection reformated images were generated. Visipaque 320 iodinated contrast utilize for intravenous enhancement, total dose [address] exam was performed using one or more of the following dose reduction techniques: Automated exposure control, adjustment of the mA and/or kV according to patient size, and/or use of iterative reconstruction technique. FINDINGS: INTERNAL CEREBRAL ARTERIES: The skull base, petrous, and supraclinoid segments are bilaterally widely patent. Sub 50 percent stenoses identified in the bilateral cavernous internal carotid arteries related to the atherosclerotic plaque. ANTERIOR CEREBRAL ARTERIES: Unremarkable. A1 and A2 segments are widely patent. Smaller distal branches unremarkable, as visualized. Patent anterior communicating artery is identified. MIDDLE CEREBRAL ARTERIES: Unremarkable. M1 and M2 segments are widely patent. Perisylvian branches grossly symmetric. POSTERIOR CIRCULATION: Basilar Artery: Unremarkable. Distal Vertebral Arteries: Atherosclerotic changes are identified resulting in less than 50 percent stenosis the distal bilateral vertebral arteries. Posterior Cerebral Arteries: Unremarkable. origin bilateral posterior communicating arteries are suggested. Posterior Inferior Cerebellar Arteries: Unremarkable. NECK CTA: Common Carotid arteries: The bilateral common carotid appear patent from their origins to their bifurcations with no significant stenosis appreciated. Less than 50 percent stenosis appreciate the bilateral carotid bulb regions to atherosclerosis bilaterally. No evidence to suggest common carotid artery dissection. Internal Carotid arteries: No significant stenosis is appreciated throughout the cervical internal carotid artery segments bilaterally and there is no evidence of dissection either. External Carotid arteries: Appear unremarkable bilaterally. Vertebral arteries: The bilateral vertebral arteries appear normal in caliber from their origins to their junction with the basilar artery. Vertebrobasilar system appears left dominant. No significant stenosis or definite pattern of dissection. Incidentally, the bilateral subclavian arteries are widely patent as well as the brachiocephalic artery. ANEURYSM/ VASCULAR MALFORMATIONS: None. OTHER FINDINGS: None. IMPRESSION: Atherosclerotic changes are identified resulting in less than 50 percent stenosis at the bilateral cavernous internal carotid segments, bilateral carotid bulbs an the distal bilateral vertebral arteries. The examination is otherwise unremarkable as discussed above.
[2017-08-04 10:26] VITALS: BP 152/83
--- NOTE | 2017-08-04 10:26 | MRI ---
PROCEDURE: MRI BRAIN WITHOUT CONTRAST HISTORY: tia COMPARISON: Head CT without contrast 08/02/2017. TECHNIQUE: Multiplanar, multisequence MR images of the brain were obtained without intravenous contrast enhancement. FINDINGS: HEMORRHAGE: None DWI: No evidence of an acute or early subacute infarction. BRAIN PARENCHYMA: Age related neuro degenerative changes are reiterated, comprised of diffuse cerebral atrophy chronic microangiopathy once again. No masses identified or suspicious extra-axial collection. White-matter changes are accentuated by high air soft tissue resolution of MRI as compared to prior CT 08/02/2017. Distribution is still the same. There no suspicious interval findings above or below the tentorium. VENTRICLES: Unremarkable. No hydrocephalus. CRANIUM: Unremarkable. ORBITS: Grossly unremarkable. PARANASAL SINUSES/MASTOIDS: Minimal mastoid effusion is seen the right skullbase. VASCULAR SYSTEM: Skull base flow voids intact. OTHER FINDINGS: None. IMPRESSION: No acute intracranial findings by standard MRI technique. Age-related neuro degenerative changes are reiterated as discussed above. Incidental trace right mastoid effusion noted.
--- NOTE | 2017-08-04 10:49 | MRI ---
PROCEDURE: Magnetic Resonance Angiography Brain HISTORY: tia COMPARISON: None available. TECHNIQUE: 3D time of flight MR angiography of the intracranial arteries was performed. Rotating maximum intensity projection images were generated. FINDINGS: INTERNAL CAROTID ARTERIES: Unremarkable. The skull base, petrous, cavernous and supraclinoid segments are bilaterally widely patient. ANTERIOR CEREBRAL ARTERIES: Unremarkable. A1 and A2 segments are widely patent. Smaller distal branches unremarkable, as visualized. MIDDLE CEREBRAL ARTERIES: Unremarkable. M1 and M2 segments are widely patent. Perisylvian branches grossly symmetric. POSTERIOR CIRCULATION: Basilar Artery: Unremarkable. Distal Vertebral Arteries: Unremarkable. Posterior Cerebral Arteries: Unremarkable. Posterior Inferior Cerebellar Arteries: Unremarkable. ANEURYSM/ VASCULAR MALFORMATIONS: None. OTHER FINDINGS: None. IMPRESSION: Unremarkable MR angiography of the brain.
--- NOTE | 2017-08-04 10:52 | MRI ---
PROCEDURE: MR Angiography of the neck without contrast HISTORY: tia COMPARISON: None available. TECHNIQUE: 3D [id number] angiography of the neck was performed. Rotating maximum intensity projection images of the cervical carotid and vertebral arteries were generated. The origins of the common carotid arteries were not visualized, which is a limitation inherent to the non-contrast time of flight technique. FINDINGS: RIGHT CAROTID ARTERIES: Common Carotid Artery: Normal. Carotid Bifurcation: Normal. Internal Carotid Artery:Normal. External Carotid Artery (proximal branches): Normal. LEFT CAROTID ARTERIES: Common Carotid Artery: Normal. Carotid Bifurcation: Normal. Internal Carotid Artery:Normal. External Carotid Artery (proximal branches): Normal. VERTEBRAL ARTERIES: Right Vertebral Artery: Normal. Left Vertebral Artery: Normal. OTHER FINDINGS: None. IMPRESSION: Normal MR Angiography of the neck.
[2017-08-04 12:16] VITALS: TEMP 98.6
[2017-08-04 14:32] VITALS: O2SAT 94
[2017-08-04] MEDS ORDERED: Metoprolol Succinate 100 mg XL Tab PO SCH (21:00)
[2017-08-05] MEDS ORDERED: ASPIRIN 81 MG PO SCH (09:00)
[2017-08-05] MEDS ORDERED: HCTZ/Losartan 12.5/50 Tab PO SCH (09:00)
[2017-08-05] MEDS ORDERED: LINAGLIPTIN PO SCH (09:00)
[2017-08-05] MEDS ORDERED: Omega-3-Acid Ethyl Esters 1 GM Cap PO SCH (09:00)
[2017-08-05] MEDS ORDERED: Patient's Own Med (Cholecalciferol (Vitamin D3) [Vitamin D3] 1 TAB) PO SCH (09:00)
[2017-08-05] MEDS ORDERED: Patient's Own Med (Fenofibrate [Triglide] 160 MG) PO SCH (09:00)
[2017-08-05] MEDS ORDERED: EMPAGLIFLOZIN PO SCH (09:00)
--- NOTE | 2017-08-06 08:30 | CARD ---
APPROVED REPORT EKG Measurement Heart [id number] <Conclusion> Sinus tachycardia with first degree AV block ST & T wave abnormality, consider inferolateral ischemia Abnormal ECG
--- NOTE | 2017-08-06 08:31 | CARD ---
APPROVED REPORT EKG Measurement Heart [id number] <Conclusion> Sinus tachycardia with 1st degree AV block ST & T wave abnormality, consider inferior ischemia Abnormal ECG
== END 2017-08-04 12:15 | disposition home or self-care (01) | DRG 69 ==
LOC: H.ER 15:37 → H.ERHOLD 16:45 → H.ICU/CCU 18:53
PROVIDERS: ADMIT Family Medicine; ATTEND Family Medicine
DX: G45.9 Transient cerebral ischemic attack, unspecified (principal); E11.65 Type 2 diabetes mellitus with hyperglycemia; R47.01 Aphasia; E78.5 Hyperlipidemia, unspecified; F17.200 Nicotine dependence, unspecified, uncomplicated; I10 Essential (primary) hypertension; I25.10 Atherosclerotic heart disease of native coronary artery without angina pectoris; J44.9 Chronic obstructive pulmonary disease, unspecified; R29.700 NIHSS score 0; Z79.02 Long term (current) use of antithrombotics/antiplatelets; Z79.82 Long term (current) use of aspirin; Z79.899 Other long term (current) drug therapy; Z95.1 Presence of aortocoronary bypass graft; Z95.5 Presence of coronary angioplasty implant and graft; Z79.84 Long term (current) use of oral hypoglycemic drugs; R47.1 Dysarthria and anarthria; E66.9 Obesity, unspecified; E78.00 Pure hypercholesterolemia, unspecified